=== PATIENT | male | born 1965 | race Two or more races ===

== ENCOUNTER 2020-02-24 20:39 | Emergency (ER) | payer SELFPAY ==
[~2020-02-24] VITALS: Ht 172.7 cm; Wt 95.2 kg
[~2020-02-24 20:39] MED LIST: CIPR500 PO; HYDACE5 PO; IBUP400 PO; SULTRIDS PO
== END 2020-02-24 22:01 ==
LOC: ER 20:39
DX: F10.129 Alcohol abuse with intoxication, unspecified (principal); F17.200 Nicotine dependence, unspecified, uncomplicated
CPT/HCPCS: 99283

== ENCOUNTER 2021-02-24 10:21 | Day surgery (SDC) | payer OTHER ==
[~2021-02-24] VITALS: Ht 172.7 cm; Wt 95.2 kg
== END 2021-02-24 12:40 | disposition home or self-care (01) ==
LOC: ORSCSDS 10:21
PROVIDERS: Student in an Organized Health Care Education/Training Program
PROC: 0DBN8ZX Excision of Sigmoid Colon, Via Natural or Artificial Opening Endoscopic, Diagnostic (ICD-10-PCS; principal; 2021-02-24 12:00)
PROC: 0DBP8ZX Excision of Rectum, Via Natural or Artificial Opening Endoscopic, Diagnostic (ICD-10-PCS; principal; 2021-02-24 12:00)
DX: Z12.11 Encounter for screening for malignant neoplasm of colon (principal); K63.5 Polyp of colon; K62.1 Rectal polyp; Z83.71 Family history of colonic polyps; K57.30 Diverticulosis of large intestine without perforation or abscess without bleeding; Z87.891 Personal history of nicotine dependence
CPT/HCPCS: 88305; J2704; J7120